=== PATIENT | male | born 1945 | race Two or more races ===

== ENCOUNTER 2022-10-08 09:58 | Day surgery (SDC) | payer MEDICARE ==
[~2022-10-08] VITALS: Ht 167.6 cm; Wt 83.1 kg
[2022-10-08] VITALS (10 sets, daily range): BP systolic 93–135; BP diastolic 60–75
[2022-10-08] MEDS ORDERED: ATOR10TA70 PO (10:33)
[2022-10-08] MEDS ORDERED: MULT-955 PO (10:34)
[2022-10-08] MEDS ORDERED: VIT1CAPS9 PO (10:34)
[2022-10-08] MEDS ORDERED: ENAL-76 PO (10:34)
[2022-10-08] MEDS ORDERED: CHLO25TA10 PO (10:34)
[2022-10-08] MEDS ORDERED: ASPI81TA52 PO (10:34)
[2022-10-08] MEDS ORDERED: FENO145T25 PO (10:34)
[2022-10-08] MEDS ORDERED: LORazepam 0.5 MG tablet PO PRN (11:10)
[2022-10-08] MEDS ORDERED: nitroGLYCERIN 0.4mg SUBLingual tab SL PRN (11:10)
[2022-10-08] MEDS ORDERED: diphenhydrAMINE 25mg capsule PO PRN (11:10)
[2022-10-08] MEDS ORDERED: normal saline 1,000 ML IV SCH (11:10)
[2022-10-08] MEDS ORDERED: fentaNYL/PF 50MCG/1 ML 2ML syringe ONE (13:38)
[2022-10-08] MEDS ORDERED: LIDOcaine 1% 30ml preserv. free vial ONE (13:38)
[2022-10-08] MEDS ORDERED: midazolam 1 mg/ML 2ml injection ONE (13:38)
[2022-10-08] MEDS ORDERED: iohexol 350 MG/ML 50ML vial IV ONE (13:39)
[2022-10-08] MEDS ORDERED: normal saline 1000ml 1,000 ML IV SCH (16:10)
[2022-10-08] MEDS ORDERED: OXAZEpam 15mg capsule PO PRN (16:10)
[2022-10-08] MEDS ORDERED: HYDROcodone/acetaminophen 5mg/325mg tablet PO PRN (16:10)
[2022-10-08] MEDS ORDERED: proCHLORperazine 10 MG/2 ml inj IV PRN (16:10)
[2022-10-08] MEDS ORDERED: HYDROcodone/acetaminophen 10/325mg tab PO PRN (16:10)
[2022-10-08] MEDS ORDERED: ondansetron/PF 4mg/2ml inj IV PRN (16:10)
== END 2022-10-08 20:25 | disposition home or self-care (01) ==
LOC: SSTAY O 09:58
PROVIDERS: ATTEND Internal Medicine Cardiovascular Disease
DX: R94.39 Abnormal result of other cardiovascular function study (principal); I25.10 Atherosclerotic heart disease of native coronary artery without angina pectoris; I35.0 Nonrheumatic aortic (valve) stenosis; I10 Essential (primary) hypertension; E78.5 Hyperlipidemia, unspecified; Z87.891 Personal history of nicotine dependence; Z98.890 Other specified postprocedural states; Z79.899 Other long term (current) drug therapy
CPT/HCPCS: 93005; 93458; 99152; 99153; C1760; C1769; J1644; J2250; J3010; J3490; J7030; Q0163; Q9967; A6258

== ENCOUNTER 2022-10-22 09:54 | Outpatient (CLI) | payer MEDICARE ==
[~2022-10-22] VITALS: Ht 165.1 cm; Wt 81.2 kg
[~2022-10-22 09:54] MED LIST: ASPI81TA52 PO; ATOR10TA70 PO; CHLO25TA10 PO; ENAL-76 PO; FENO145T25 PO; MULT-955 PO; VIT1CAPS9 PO
[2022-10-22 10:48] LABS: EOSINOPHILS # (AUTO) 0.7 X10'3 (0-0.9); MEAN CORPUSCULAR VOLUME 86.5 FL (78-98); MEAN PLATELET VOLUME 7.7 FL (7.4-10.4)
[2022-10-22 10:49] LABS: BASOPHILS # (AUTO) 0.1 X10'3 (0-0.2); HEMATOCRIT 41.9 % (42.0-52.0); LYMPHOCYTES # (AUTO) 3.1 X10'3 (1.1-4.8); LYMPHOCYTES % (AUTO) 27.1 % (21-51); MEAN CORPUSCULAR HEMOGLOBIN 28.8 PG (27.0-31.0); MEAN CORPUSCULAR HGB CONC 33.4 g/dL (33.0-36.5); MONOCYTES # (AUTO) 0.9 X10'3 (0-0.9); MONOCYTES % (AUTO) 8.2 % (2-12); NEUTROPHILS # (AUTO) 6.7 X10'3 (1.8-7.7); NEUTROPHILS % (AUTO) 57.7 % (42-75); PLATELET COUNT 443 X10'3 (140-440); RED BLOOD COUNT 4.85 X10'6 (4.70-6.10); RED CELL DISTRIBUTION WIDTH 14.8 % (11.5-14.5); WHITE BLOOD COUNT 11.5 X10'3 (4.5-11.0)
[2022-10-22 10:50] LABS: APTT 27 SECONDS (22-32)
[2022-10-22 10:51] LABS: ALANINE AMINOTRANSFERASE 21 U/L (12-78); ALBUMIN 3.9 G/DL (3.4-5.0); ALBUMIN/GLOBULIN RATIO 1.1 (1.1-1.5); ALKALINE PHOSPHATASE 54 IU/L (46-116); ANION GAP 11 (8-16); ASPARTATE AMINO TRANSFERASE 20 U/L (10-37); BILIRUBIN,TOTAL 0.4 MG/DL (0.1-1.0); CALCIUM 9.8 MG/DL (8.5-10.1); CHLORIDE 99 MMOL/L (99-107); CREATININE 1.16 MG/DL (0.60-1.10); GLUCOSE 115 MG/DL (70-104); POTASSIUM 3.6 MMOL/L (3.5-5.1); SODIUM 136 MMOL/L (135-145); TOTAL CARBON DIOXIDE 25.8 MMOL/L (24-32); TOTAL PROTEIN 7.6 G/DL (6.4-8.2); eGFR 61 ML/MIN
[2022-10-22 11:33] LABS: BLOOD UREA NITROGEN 28 MG/DL (7-18); BUN/CREATININE RATIO 24.1 (10.0-20.0)
[2022-10-22] MEDS ORDERED: IODIXANOL 320 MG/ML INFUS..BTL 100ML IV ONE (12:17)
[2022-10-22] MEDS ORDERED: albuterol 2.5 MG/3 ML nebule NEB PRN (14:05)
== END 2022-10-22 23:59 | disposition home or self-care (01) ==
LOC: RAD 09:54
PROVIDERS: ATTEND Internal Medicine Cardiovascular Disease
DX: J84.10 Pulmonary fibrosis, unspecified (principal); I08.0 Rheumatic disorders of both mitral and aortic valves; K76.0 Fatty (change of) liver, not elsewhere classified; K57.30 Diverticulosis of large intestine without perforation or abscess without bleeding; R94.5 Abnormal results of liver function studies; J47.9 Bronchiectasis, uncomplicated; K44.9 Diaphragmatic hernia without obstruction or gangrene; N28.1 Cyst of kidney, acquired; K40.20 Bilateral inguinal hernia, without obstruction or gangrene, not specified as recurrent; I25.10 Atherosclerotic heart disease of native coronary artery without angina pectoris; I65.23 Occlusion and stenosis of bilateral carotid arteries; R60.9 Edema, unspecified; R06.02 Shortness of breath; Z90.49 Acquired absence of other specified parts of digestive tract
CPT/HCPCS: 36415; 71046; 71275; 74174; 80053; 85025; 85610; 85730; 93308; 93880; 94060; 94727; 94729; 94760; J3490; Q9967

== ENCOUNTER 2022-11-27 08:32 | Inpatient (IN) | payer MEDICARE ==
[2022-11-21 11:11] LABS: BASOPHILS # (AUTO) 0.1 X10'3 (0-0.2); BASOPHILS % (AUTO) 0.7 % (0-1); EOSINOPHILS # (AUTO) 0.4 X10'3 (0-0.9); EOSINOPHILS % (AUTO) 4.4 % (0-6); LYMPHOCYTES # (AUTO) 2.7 X10'3 (1.1-4.8); LYMPHOCYTES % (AUTO) 29.5 % (21-51); MEAN CORPUSCULAR HGB CONC 33.7 g/dL (33.0-36.5); MEAN PLATELET VOLUME 7.1 FL (7.4-10.4); MONOCYTES # (AUTO) 0.7 X10'3 (0-0.9); MONOCYTES % (AUTO) 7.9 % (2-12); NEUTROPHILS # (AUTO) 5.3 X10'3 (1.8-7.7); NEUTROPHILS % (AUTO) 57.5 % (42-75); PRE OP HEMATOCRIT 40.3 % (42.0-52.0); PRE OP HEMOGLOBIN 13.6 g/dL (14.0-17.9); PRE OP PLATELET COUNT 379 X10'3 (140-440); RED BLOOD COUNT 4.68 X10'6 (4.70-6.10); RED CELL DISTRIBUTION WIDTH 14.5 % (11.5-14.5)
[2022-11-21 11:11] LABS: CLARITY,URINE CLEAR (Clear); COLOR,URINE STRAW (Yellow); GLUCOSE, URINE NEGATIVE (Neg); KETONES,URINE NEGATIVE (Neg); LEUKOCYTE ESTERASE ,URINE NEGATIVE (Neg); NITRITES, URINE NEGATIVE (Neg); OCCULT BLOOD,URINE NEGATIVE (Neg); PROTEIN,URINE NEGATIVE (Neg); UROBILINOGEN,URINE 0.2 E.U/dL (0.2-1.0)
[2022-11-21 11:12] LABS: UA COLLECTION TYPE VOIDED
[2022-11-21 11:27] LABS: ALBUMIN/GLOBULIN RATIO 1.2 (1.1-1.5); ALKALINE PHOSPHATASE 48 IU/L (46-116); BLOOD UREA NITROGEN 25 MG/DL (7-18); BUN/CREATININE RATIO 23.6 (10.0-20.0); CALCIUM 9.7 MG/DL (8.5-10.1); CHLORIDE 100 MMOL/L (99-107); CREATININE 1.06 MG/DL (0.60-1.10); PRE OP ALT 27 U/L (30-65); PRE OP ANION GAP 9 (8-16); PRE OP AST 20 U/L (10-37); PRE OP BILIRUB, TOTAL 0.3 MG/DL (0.0-1.0); PRE OP GLUCOSE 109 MG/DL (70-104); PRE OP POTASSIUM 3.7 MMOL/L (3.4-5.1); PRE OP SODIUM 135 MMOL/L (135-145); TOTAL PROTEIN 7.3 G/DL (6.4-8.2); eGFR 68 ML/MIN
[2022-11-21 11:43] LABS: PRE OP INR 1.1 INR; PRE OP PROTIME 11.4 SECONDS (9.0-12.0)
[2022-11-27] VITALS (23 sets, daily range): BP systolic 110–143; BP diastolic 59–82
[~2022-11-27] VITALS: Ht 167.6 cm; Wt 79.9 kg
[~2022-11-27 08:32] MED LIST changes: +aspirin 325mg tablet PO ONE; +cefazolin 2gm/D5W 100mL 100 ML IV ONE; +famotidine 20mg tablet PO ONE; +nitroPRUSSIDE (NIPRIDE) (200MCG/ML) 100ML Drip IV SCH; +ondansetron/PF 4mg/2ml inj IV PRN; +phenylephrine inj 50 MG in normal saline 250ml IV solN IV SCH; +protamine sulfate 10mg/ml inj. ONE; +ringers solution, lacted 1,000 ML IV SCH; +vancomycin 1,500 MG in NS 300ml IV soln IV ONE
[2022-11-27] MEDS ORDERED: LIDOcaine 1% 30ml preserv. free vial ONE (10:35)
[2022-11-27] MEDS ORDERED: iohexol 350MG/ML 100ml bottle IV ONE (10:35)
[2022-11-27] MEDS ORDERED: morphine 2 MG/ML inj. syringe IV PRN (10:45)
[2022-11-27] MEDS ORDERED: ringers solution, lacted 1,000 ML IV SCH (10:45)
[2022-11-27] MEDS ORDERED: ondansetron/PF 4mg/2ml inj IV PRN ×2 (10:45→11:50)
[2022-11-27] MEDS ORDERED: meperidine/PF 25mg/ml syringe IV PRN ×3 (10:45)
[2022-11-27] MEDS ORDERED: proCHLORperazine 10 MG/2 ml inj IV PRN ×2 (10:45→11:50)
[2022-11-27] MEDS ORDERED: morphine 4 MG/ML inj SYRINge IV PRN (10:45)
[2022-11-27] MEDS ORDERED: midazolam 1 mg/ML 2ml injection ONE ×2 (10:51→10:56)
[2022-11-27] MEDS ORDERED: fentaNYL/PF 50MCG/1 ML 2ML syringe ONE (10:51)
[2022-11-27] MEDS ORDERED: propofol inj 20 ML IV ONE ×2 (10:55)
[2022-11-27] MEDS ORDERED: heparin 1,000unit/ml 10ml vial 10 ML ONE (11:02)
[2022-11-27] MEDS ORDERED: protamine sulfate 10mg/ml inj. IV ONE (11:16)
[2022-11-27] MEDS ORDERED: heparin 1,000 UNITS/NS 500ml 500 ML ONE (11:26)
[2022-11-27] MEDS ORDERED: potassium Cl 40MEQ/270ML bag 250 ML IV PRN (11:50)
[2022-11-27] MEDS ORDERED: potassium Cl 20mEq/100mL bag 100 ML IV PRN (11:50)
[2022-11-27] MEDS ORDERED: labetalol 20mg/4ml (5mg/ml) syringe IV PRN (11:50)
[2022-11-27] MEDS ORDERED: hydrALAZINE 20mg/ml inj. IV PRN (11:50)
[2022-11-27] MEDS ORDERED: acetaminophen 325mg tablet PO PRN (11:50)
[2022-11-27] MEDS ORDERED: HYDROcodone/acetaminophen 5mg/325mg tablet PO PRN (11:50)
[2022-11-27] MEDS ORDERED: magnesium 4gm in 100ml NS 100 ML IV PRN (11:50)
[2022-11-27] MEDS ORDERED: potassium Cl 20 mEq SR tablet PO PRN (11:50)
[2022-11-27] MEDS ORDERED: docusate sod 100mg capsule PO PRN (11:50)
[2022-11-27] MEDS ORDERED: potassium CL 10mEq/100ml bag 100 ML IV PRN (11:50)
[2022-11-27] MEDS ORDERED: potassium Cl 40MEQ/1/2NS 520ml 520 ML IV PRN (11:50)
[2022-11-27] MEDS ORDERED: magnesium 2GM in 50ml NS 50 ML IV PRN (11:50)
[2022-11-27] MEDS ORDERED: ALPRAZolam 0.25mg tablet PO PRN (11:50)
--- NOTE | 2022-11-27 11:56 | NUR ---
Received from OR via HOSPITAL BED TO RR 6, accompanied by Anesthesiologist DR NEAL and report given by Anesthesiolgist. PT PRESENTS WITH PIV 20G RIGHT HAND, ART LINE LEFT WRIST, SPO2 98% ROOM AIR, BILATERAL GROIN SITES SOFT NON TENDER CDI, PEDAL AND TIBIAL PULSES PALPATED, NEURO CHECK INTACT, VSS. Addendum: 11/27/22 at 1219 by Rubina Patricia RN, RN Amended: Links added.
--- NOTE | 2022-11-27 13:01 | NUR ---
ART LINE REMOVED FROM PT LEFT WRIST, PT TOLERATED WELL. 2X2 AND COBAN PRESSURE DRESSING APPLIED. NO BLEEDING FROM LEFT WRIST AT THIS TIME.
--- NOTE | 2022-11-27 13:26 | NUR ---
REPORT GIVEN AND ALL QUESTIONS ANSWERED. PATIENT TRANSFERRED TO SURG/ORTHO PCU ICU. TRANSFER: LABELED BELONGINGS PRESENT AND DELIVERED TO ROOM. RN PRESENT ALL CRITERIA FOR TRANSFER BACK TO THE FLOOR HAS BEEN ACHIEVED. VSS. PAIN AT A TOLERABLE LEVEL. BED LOW, CALL LIGHT PRESENT AND 2 RAILS DOWN. RN AWARE THAT PATIENT HAS ARRIVED. TO ACCEPT CARE OF PATIENT. Addendum: 11/27/22 at 1328 by Rubina Patricia RN, RN Amended: Links added.
[2022-11-27] MEDS: normal saline 1000ml 1,000 ML IV SCH (13:38)
[2022-11-27] MEDS: diphenhydrAMINE 25mg capsule PO PRN ×2 (14:47→23:30)
[2022-11-27] MEDS: sod chloride 0.9% 10ml flush syringe IV SCH (15:47)
[2022-11-27] MEDS: ceFAZolin 1GM/D5W- ADD-VANTAGE 50 ML IV SCH (15:52)
--- NOTE | 2022-11-27 16:51 | NUR ---
Report given to Urbano MILLER. All questions answered. Pt to be transferred to room 3019C.
--- NOTE | 2022-11-27 17:05 | NUR ---
Patient in room PCU 3017. I have received report from Alexsandra MILLER and had the opportunity to ask questions and assume patient care. Pt alert and oriented x 4, Cam[place]onian and Polish speaking, able to make needs known, on room air. Pt has Left and Right groin access sites C/D/I, pedal pulses palpable x 2. Oriented to room. Pt able to use urinal. Pt able to get out of bed at 1800hrs. at bedside. Addendum: 11/27/22 at 1800 by Urbano Patricia LVN COMMUNICATION EQUIPMENT REPAIRER Amended: Links added.
--- NOTE | 2022-11-27 17:15 | NUR ---
Pt transferred to room 3017B. Urbano MILLER assumed pt care. All belongings present with patient. 2 RN check of groins at bedside. All questions answered. Pt in stable condition upon transfer.
--- NOTE | 2022-11-27 18:19 | NUR ---
Problems reprioritized. Patient report given, questions answered & plan of care reviewed with Sushma MILLER.
[2022-11-27] MEDS: vancomycin/NS 1 GM ADD-VANTAGE 250 ML IV SCH (20:59)
[2022-11-28] VITALS (7 sets, daily range): BP systolic 96–144; BP diastolic 43–65
[2022-11-28] MEDS: sod chloride 0.9% 10ml flush syringe IV SCH ×2 (00:15→08:56)
[2022-11-28] MEDS: normal saline 1000ml 1,000 ML IV SCH ×2 (00:15→07:50)
[2022-11-28] MEDS: ceFAZolin 1GM/D5W- ADD-VANTAGE 50 ML IV SCH ×2 (00:18→07:59)
--- NOTE | 2022-11-28 06:30 | NUR ---
Patient in room PCU 3017. I have received report from Sushma MILLER and had the opportunity to ask questions and assume patient care. Pt awake. Denies pain.
--- NOTE | 2022-11-28 07:27 | NUR ---
Problems reprioritized. Patient report given, questions answered & plan of care reviewed with Urbano TAN.
[2022-11-28] MEDS ORDERED: pantoprazole 40mg Tablet.DR PO PRN (07:30)
[2022-11-28 07:42] LABS: BASOPHILS # (AUTO) 0.1 X10'3 (0-0.2); BASOPHILS % (AUTO) 0.8 % (0-1); EOSINOPHILS # (AUTO) 0.4 X10'3 (0-0.9); EOSINOPHILS % (AUTO) 3.1 % (0-6); HEMATOCRIT 36.4 % (42.0-52.0); HEMOGLOBIN 12.3 g/dl (14.0-17.9); LYMPHOCYTES # (AUTO) 1.5 X10'3 (1.1-4.8); LYMPHOCYTES % (AUTO) 13.6 % (21-51); MEAN CORPUSCULAR HEMOGLOBIN 28.9 PG (27.0-31.0); MEAN CORPUSCULAR HGB CONC 33.6 g/dL (33.0-36.5); MEAN CORPUSCULAR VOLUME 86.1 FL (78-98); MEAN PLATELET VOLUME 7.9 FL (7.4-10.4); MONOCYTES # (AUTO) 0.9 X10'3 (0-0.9); MONOCYTES % (AUTO) 8.2 % (2-12); NEUTROPHILS # (AUTO) 8.4 X10'3 (1.8-7.7); NEUTROPHILS % (AUTO) 74.3 % (42-75); PLATELET COUNT 282 X10'3 (140-440); RED BLOOD COUNT 4.23 X10'6 (4.70-6.10); RED CELL DISTRIBUTION WIDTH 14.5 % (11.5-14.5); WHITE BLOOD COUNT 11.3 X10'3 (4.5-11.0)
[2022-11-28] MEDS ORDERED: VIT E PO SCH (08:00)
[2022-11-28] MEDS ORDERED: VIT C PO SCH (08:00)
[2022-11-28] MEDS ORDERED: atorvastatin 10mg tablet PO SCH (08:00)
[2022-11-28] MEDS ORDERED: aspirin 81mg, enteric-coated 1 TAB TABLET.DR PO SCH (08:00)
[2022-11-28] MEDS ORDERED: lisinopril 10 MG tablet PO SCH (08:00)
[2022-11-28] MEDS ORDERED: ZINC PO SCH (08:00)
[2022-11-28] MEDS ORDERED: COPPER PO SCH (08:00)
[2022-11-28] MEDS ORDERED: multivitamins, therapeutics tablet PO SCH (08:00)
[2022-11-28] MEDS ORDERED: VIT A PO SCH (08:00)
[2022-11-28] MEDS ORDERED: chlorthalidone 25mg tablet PO SCH (08:00)
[2022-11-28] MEDS ORDERED: fenofibrate 145mg tablet PO SCH (08:00)
[2022-11-28 08:16] LABS: ALANINE AMINOTRANSFERASE 19 U/L (12-78); ALBUMIN 3.2 G/DL (3.4-5.0); ALBUMIN/GLOBULIN RATIO 1.1 (1.1-1.5); ALKALINE PHOSPHATASE 39 IU/L (46-116); ANION GAP 6 (8-16); ASPARTATE AMINO TRANSFERASE 30 U/L (10-37); BILIRUBIN,TOTAL 0.8 MG/DL (0.1-1.0); BLOOD UREA NITROGEN 21 MG/DL (7-18); CHLORIDE 104 MMOL/L (99-107); CREATININE 1.05 MG/DL (0.60-1.10); GLUCOSE 104 MG/DL (70-104); MAGNESIUM 1.9 MG/DL (1.5-2.4); SODIUM 137 MMOL/L (135-145); TOTAL CARBON DIOXIDE 26.8 MMOL/L (24-32); eGFR 69 ML/MIN
[2022-11-28] MEDS ORDERED: aspirin 81mg tab.chew PO SCH (08:30)
[2022-11-28] MEDS: vancomycin/NS 1 GM ADD-VANTAGE 250 ML IV SCH (09:05)
--- NOTE | 2022-11-28 15:00 | NUR ---
all written and verbal instructions provided to patient. All questions answered and verbalized understanding. PIV discontinued. Telebox discontinued. Pt declined ambulating via wheelchair and preferred to walk to lobby. Pt left in family vehicle. Addendum: 11/28/22 at 1617 by Urbano Patricia LVN, LVN Amended: Links added.
== END 2022-11-28 15:32 | disposition home or self-care (01) | DRG 266 ==
LOC: PAS IN 08:32 → UNDOADMIN 08:32 → PAS IN 11:51 → PCU 3S 17:11
PROVIDERS: ADMIT Internal Medicine Cardiovascular Disease; ATTEND Internal Medicine Cardiovascular Disease
PROC: B41D1ZZ Fluoroscopy of Aorta and Bilateral Lower Extremity Arteries using Low Osmolar Contrast (ICD-10-PCS; 2022-11-27)
PROC: 02RF38Z Replacement of Aortic Valve with Zooplastic Tissue, Percutaneous Approach (ICD-10-PCS; principal; 2022-11-27 10:49)
DX: I35.0 Nonrheumatic aortic (valve) stenosis (principal); Z00.6 Encounter for examination for normal comparison and control in clinical research program; I50.33 Acute on chronic diastolic (congestive) heart failure; I11.0 Hypertensive heart disease with heart failure; E78.5 Hyperlipidemia, unspecified; Z79.82 Long term (current) use of aspirin; Z79.899 Other long term (current) drug therapy
CPT/HCPCS: 36415; 71045; 71046; 80053; 81003; 82948; 83735; 83880; 85025; 85610; 85730; 86885; 86900; 86901; 86920; 87081; 93005; 93308; A4618; A6258; A6449; G0378; J0690; J1644; J2250; J2370; J2704; J2720; J3010; J3370; J3490; J7030; J7040; J7050; J7120; Q0163; Q9967